=== PATIENT | male | born 1985 | race Hispanic/Latino ===

== ENCOUNTER 2017-04-19 07:34 | Emergency (ER) | payer OTHER ==
[~2017-04-19] VITALS: Ht 172.7 cm; Wt 83.2 kg
[2017-04-19 07:36] VITALS: BP 137/84
[2017-04-19] MEDS ORDERED: IBUP-1114 PO (07:43)
--- NOTE | 2017-04-19 08:20 | REP ---
Left knee five views: There are no comparisons. There is no fracture or dislocation. There is no hemarthrosis. There are no calcifications or foreign bodies. Mineralization and joint spaces are normal. Impression: Negative left knee. Signed by Juan Ray MD 04/19/2017 08:11 A
[2017-04-19] MEDS ORDERED: NORCOTAB PO (08:24)
== END 2017-04-19 08:38 | disposition home or self-care (01) ==
LOC: M ED 07:34
DX: S83.412A Sprain of medial collateral ligament of left knee, initial encounter (principal); X50.1XXA Overexertion from prolonged static or awkward postures, initial encounter; Y92.9 Unspecified place or not applicable; Y93.9 Activity, unspecified; Y99.0 Civilian activity done for income or pay